=== PATIENT | male | born 1980 | race Caucasian/White ===

== ENCOUNTER 2025-07-08 11:56 | Emergency (ER) | payer BC, SELFPAY ==
--- NOTE | 2025-07-08 | XR_ITS ---
Examination: MRI abdomen with intravenous contrast. MRI abdomen without intravenous contrast. Date and time of exam: July 08, 2025, 1407 hours INDICATIONS: History hypertension and headaches with elevated catecholamines Technique: Multiple axial, sagittal and coronal sections of the abdomen obtained. Transverse images, TR 6020, TE 107. T1 weighted transverse images, TR 582, TE 9.5. T2-weighted sagittal images, TR 4000, TE 105. T2-weighted sagittal images, TR 4000, TE 5. Coronal images, TR 4210, TE 107. Axial and coronal images are obtained post 19 cc intravenous injection, gadolinium. Findings: No visualized liver lesion or intrahepatic biliary duct dilatation No gallstones Normal common hepatic common bile duct No pancreatic mass or peripancreatic edema Bilateral normal adrenal glands No abdominal lymphadenopathy Minimal perinephric stranding Spleen is not enlarged No ascites Postcontrast images demonstrate no abnormal liver or splenic or renal enhancement IMPRESSION: Normal adrenal glands No abdominal lymphadenopathy No abnormal enhancing masses in the abdomen
--- NOTE | 2025-07-08 | XR_ITS ---
Examination: MRI pelvis with intravenous contrast. MRI pelvis without intravenous contrast. Date and time of exam: July 08, 2025, 1407 hours INDICATIONS: Hypertension headaches elevated catecholamines on laboratory examination this week Technique: Multiple axial, sagittal and coronal sections of the pelvis obtained. Transverse images, TR 6020, TE 107. T1 weighted transverse images, TR 582, TE 9.5. T2-weighted sagittal images, TR 4000, TE 105. T2-weighted sagittal images, TR 4000, TE 5. Coronal images, TR 4210, TE 107. Axial and coronal images are obtained post 19 cc intravenous injection, gadolinium. Findings: No common iliac external iliac internal iliac or common femoral lymphadenopathy No free fluid in the pelvis. Normal seminal vesicles Prostate is not enlarged, no prostate nodules Homogeneous marrow signal visualized osseous structures Postcontrast images demonstrate no abnormal osseous or soft tissue enhancement IMPRESSION: Negative study
[2025-07-08 12:09] VITALS: BP 110/80; PULSE 77; RESP 18; TEMP 36.4; O2SAT 97; BMI 32.4
--- NOTE | 2025-07-08 12:44 | EKG_ITS ---
[facility] Test Date: 2025-07-08 Pat Name: JEANNINE MOELLER Department: Room: - Gender: Male Mender Hand: : 1980 Requested By: Tu Rios Order Number: [id number] Reading MD: Tu Rios Measurements Intervals [place] Rate: 75 P: 29 SC: 162 QRS: 40 QRSD: 85 T: 25 QT: 349 QTc: 391 Interpretive Statements SINUS RHYTHM No previous ECG available for comparison /store/S0/[id number]/ecg/[id number].pdf
--- NOTE | 2025-07-08 12:44 | XR_ITS ---
EXAMINATION: PA chest single view TECHNIQUE: Upright PA chest single view Date and time: July 08, 2025, 1329 hours INDICATIONS: Headaches chest pain dizziness beginning 2 days ago. FINDINGS: Normal heart size The lungs are clear. Old healed left clavicle fracture IMPRESSION: No active disease
[2025-07-08] MEDS: ONDANSETRON INJ 2 MG/ML INJ 2 ML 4 MG IVP (13:23)
[2025-07-08] MEDS: KETOROLAC INJ 30 MG/ML VIAL 15 MG IVP (13:24)
[2025-07-08] MEDS: SODIUM CHLORIDE 0.9% 1000 ML 1,000 ML 999 ML IV (13:25)
[2025-07-08 13:43] LABS: Basophils # (Auto) 0.1 Thou/mm3 (0.0-0.2); Basophils % (Auto) 1 % (0-2.5); Eosinophils # (Auto) 0.2 Thou/mm3 (0.0-0.5); Eosinophils % (Auto) 3 % (0-10); Hematocrit 47.2 % (41.0-53.0); Hemoglobin 14.7 g/dL (13.5-16.0); Immature Granulocytes Auto 0.03 Thou/mm3 (0.00-0.00); Lymphocytes # (Auto) 2.3 Thou/mm3 (1.0-4.8); Lymphocytes % (Auto) 35 % (10-50); Mean Corpuscular HGB Conc 31.1 g/dl (31.0-37.0); Mean Corpuscular Hemoglobin 29.3 pg (25.0-35.0); Mean Corpuscular Volume 94 fL (80-100); Monocytes # (Auto) 0.6 Thou/mm3 (0.0-0.8); Monocytes % (Auto) 9 % (0-12); Neutrophils # (Auto) 3.4 Thou/mm3 (1.8-7.7); Neutrophils % (Auto) 52 % (37-80); Nucleated Red Blood Cell # 0.00 Thou/mm3 (0.00-0.00); Nucleated Red Blood Cell % 0 /100 WBC (0); Platelet Count 228 Thou/mm3 (140-440); RDW Standard Deviation 44.1 fL (35.1-43.9); Red Blood Count 5.01 Miln/mm3 (4.50-5.90); White Blood Count 6.6 Thou/mm3 (3.8-10.6)
[2025-07-08 13:58] LABS: INR 1.0 (0.9-1.3); Partial Thromboplastin Time 29.5 Seconds (22.0-36.0); Prothrombin Time 10.3 Seconds (9.0-12.2)
[2025-07-08 14:05] LABS: Alanine Aminotransferase 79 U/L (10-49); Albumin, Serum 5.0 gm/dL (3.5-5.0); Albumin/Globulin Ratio 1.9 (1.2-2.2); Alkaline Phosphatase 77 U/L (46-116); Anion Gap 10 (7-16); Aspartate Amino Transferase 39 U/L (0-34); BUN/Creatinine Ratio 10 Ratio (12-20); Bilirubin,Total 0.5 mg/dL (0.3-1.2); Blood Urea Nitrogen 9 mg/dL (9-23); Calcium 9.5 mg/dL (8.3-10.6); Calcium (Corrected) 9.5 mg/dL (8.5-10.1); Carbon Dioxide 28.3 mMol/L (20.0-31.0); Chloride 103 mMol/L (98-107); Creatinine (Component) 0.9 mg/dL (0.6-1.3); Estimated Creatinine Clearance 121.7 mL/min (>60); Globulin 2.6 gm/dL (2.3-3.5); Glucose 89 mg/dL (74-106); Osmolality,Calculated 278 (275-295); Potassium 4.4 mMol/L (3.4-5.1); Sodium 141 mMol/L (136-145); Total Protein 7.6 gm/dL (5.7-8.2); Troponin I < 0.002 ng/mL (0.0-0.045); eGFR > 60 See Note
--- NOTE | 2025-07-08 17:34 | EDNOTE_ITS ---
ED Headache RME/HPI General Chief Complaint: Headache Stated Complaint: HEADACHE X 1 YEAR Time Seen by Provider: 07/08/25 12:14 Arrival date/time: 07/08/25 11:56 Limitations: no limitations RME / HPI RME / HPI Narrative: 45 year old male with history of hypertension (on Olemasartan) and previous sinus surgery presents to the ED for complaint of frontal headache, nausea, dizziness beginning over the last few days and worsening this morning. Patient reports he has had similar symptoms intermittently over the last few years and had been evaluated by specialist at [facility]. states the patient once had a lumbar puncture with borderline high opening pressure of 20 and neurologist at that time were concerned he may have intracranial hypertension though no further work-up or testing performed. No other associated symptoms or complaints reported. Patient additionally reports he consulted with his PCP regarding his symptoms who ordered cortisol levels and a 24 hour catecholamines test and told the catecholamine level in urine was elevated. Patient states he has not had any imaging performed by PCP. Related Data Allergies Allergy/AdvReac Type Severity Reaction Status Date / Time No Known Allergies Allergy Verified 07/08/25 12:00 Review of Systems Review of Systems Systems Reviewed: All systems reviewed, normal except as documented Past Medical History Past Medical History RESPIRATORY: Negative Respiratory Disorders Social History SMOKING STATUS: Never smoker ED Exam General Limitations: Present no limitations General appearance: Present alert and in no apparent distress Head Head exam: Present atraumatic, normocephalic and normal inspection Eye Eye exam: Present normal appearance, PERRL and EOMI ENT ENT exam: Present normal exam, normal oropharynx and mucous membranes moist Neck Neck exam: Present normal inspection, full ROM and trachea midline Chest Chest inspection: Present normal inspection and symmetric chest wall rise Respiratory Respiratory exam: Present normal lung sounds bilaterally Cardiovascular Cardiovascular exam: Present regular rate, normal rhythm and normal heart sounds Abdominal Exam Abdominal exam: Present soft and normal bowel sounds Extremities Exam Extremities exam: Present normal inspection and full ROM Back Exam Back exam: Present normal inspection and full ROM Neurological Exam Neurological exam: Present alert, oriented X3 and CN II-XII intact Psychiatric Psychiatric exam: Present normal affect and normal mood Skin Skin exam: Present warm, dry, intact and normal color Course Quality Measures none Orders Category Date Time Status Party Plan Sales Host/Hostess NOW Care 07/08/25 12:44 Active Continuous Pulse Oximetry NOW Care 07/08/25 12:44 Active EKG (ED ONLY) *Do not use* NOW Care 07/08/25 12:44 Completed Insert IV NOW Care 07/08/25 12:44 Active MRI Screening NOW Care 07/08/25 12:48 Active EKG (ED Only) Stat Exams 07/08/25 12:44 Draft MR abdomen wo/w con Stat Exams 07/08/25 Completed MR pelvis wo/w con Stat Exams 07/08/25 Completed XR chest 1V portable Stat Exams 07/08/25 12:44 Completed CBC Stat Lab 07/08/25 13:25 Completed Comprehensive Metabolic Panel Stat Lab 07/08/25 13:25 Completed Partial Thromboplastin Time Stat Lab 07/08/25 13:25 Completed Prothrombin Time with INR Stat Lab 07/08/25 13:25 Completed Troponin I Stat Lab 07/08/25 13:25 Completed Urinalysis Stat Lab 07/08/25 12:44 Ordered Ketorolac Inj [Toradol Inj] Med 07/08/25 12:46 Discontinued 15 mg IVP X1 ONE Ondansetron Inj [Zofran Inj] Med 07/08/25 12:46 Discontinued 4 mg IVP X1 ONE Sodium Chloride 0.9% 1000 ml [Ns] 1,000 ml Med 07/08/25 12:44 Discontinued IV 999 mls/hr Vital Signs Vital signs: Vital Signs Temperature 97.5 F 07/08/25 12:09 Pulse Rate 77 07/08/25 12:09 Respiratory Rate 18 07/08/25 12:09 Blood Pressure 110/80 07/08/25 12:09 Pulse Oximetry (%) 97 07/08/25 12:09 Oxygen Delivery Method Room Air 07/08/25 12:09 Pulse ox is 97% on room air which is adequate. Headache MDM Narrative MDM Narrative:: IBambi, abdulaziz scribing for and in the presence of Dr. Walters. Given the patients high 24 hour catecholamines test, we need to rule out adrenal. MRI of the abdomen was ordered along with labs. Labs and the MRI w/wo contrast were normal. Assessment: Headache, dizziness, elevated catecholamines The patient was advised to continue taking the same medications and the reports were given to him for his primary. Findings discussed with patient and and patient was discharged home. Patient data External records reviewed:: [facility] previous records Clinical information provided by:: patient Social determinants that could affect healthcare access:: none Patient has the following chronic illnesses:: hypertension (on Olemasartan) and previous sinus surgery How is presenting disease/condition affected by chronic disease/condition?: exacerbated by Evaluation data The following diagnostics were reviewed and interpreted by me:: lab results, radiology exam(s) and EKG tracing(s) (EKG 13:24. NSR, rate 75, no STEMI. ) Lab and/or radiology exams considered but not ordered:: None Interpretation Summary: Ordering Physician: Tu Walters MD Date of Service: 07/08/25 Procedure(s): MR abdomen wo/w con Accession Number(s): [id number] cc: Tu Walters MD; Aleksander Buck MD; NO PRIMARY/FAMILY,PHYSICIAN~ Examination: MRI abdomen with intravenous contrast. MRI abdomen without intravenous contrast. Date and time of exam: July 08, 2025, 1407 hours INDICATIONS: History hypertension and headaches with elevated catecholamines Technique: Multiple axial, sagittal and coronal sections of the abdomen obtained. Transverse images, TR 6020, TE 107. T1 weighted transverse images, TR 582, TE 9.5. T2-weighted sagittal images, TR 4000, TE 105. T2-weighted sagittal images, TR 4000, TE 5. Coronal images, TR 4210, TE 107. Axial and coronal images are obtained post 19 cc intravenous injection, gadolinium. Findings: No visualized liver lesion or intrahepatic biliary duct dilatation No gallstones Normal common hepatic common bile duct No pancreatic mass or peripancreatic edema Bilateral normal adrenal glands No abdominal lymphadenopathy Minimal perinephric stranding Spleen is not enlarged No ascites Postcontrast images demonstrate no abnormal liver or splenic or renal enhancement IMPRESSION: Normal adrenal glands No abdominal lymphadenopathy No abnormal enhancing masses in the abdomen Dictated By: Aleksander Buck MD Signed By: <Electronically signed by Aleksander Buck MD in OV> 07/08/25 1536 Ordering Physician: Tu Walters MD Date of Service: 07/08/25 Procedure(s): MR pelvis wo/w con Accession Number(s): [id number] cc: Tu Walters MD; Aleksander Buck MD; NO PRIMARY/FAMILY,PHYSICIAN~ Examination: MRI pelvis with intravenous contrast. MRI pelvis without intravenous contrast. Date and time of exam: July 08, 2025, 1407 hours INDICATIONS: Hypertension headaches elevated catecholamines on laboratory examination this week Technique: Multiple axial, sagittal and coronal sections of the pelvis obtained. Transverse images, TR 6020, TE 107. T1 weighted transverse images, TR 582, TE 9.5. T2-weighted sagittal images, TR 4000, TE 105. T2-weighted sagittal images, TR 4000, TE 5. Coronal images, TR 4210, TE 107. Axial and coronal images are obtained post 19 cc intravenous injection, gadolinium. Findings: No common iliac external iliac internal iliac or common femoral lymphadenopathy No free fluid in the pelvis. Normal seminal vesicles Prostate is not enlarged, no prostate nodules Homogeneous marrow signal visualized osseous structures Postcontrast images demonstrate no abnormal osseous or soft tissue enhancement IMPRESSION: Negative study Dictated By: Aleksander Buck MD Signed By: <Electronically signed by Aleksander Buck MD in OV> 07/08/25 1538 Ordering Physician: Tu Walters MD Date of Service: 07/08/25 Procedure(s): XR chest 1V portable Accession Number(s): [id number] cc: Tu Walters MD; Aleksander Buck MD; NO PRIMARY/FAMILY,PHYSICIAN~ EXAMINATION: PA chest single view TECHNIQUE: Upright PA chest single view Date and time: July 08, 2025, 1329 hours INDICATIONS: Headaches chest pain dizziness beginning 2 days ago. FINDINGS: Normal heart size The lungs are clear. Old healed left clavicle fracture IMPRESSION: No active disease Dictated By: Aleksander Buck MD Signed By: <Electronically signed by Aleksander Buck MD in OV> 07/08/25 1402 Medications / Prescriptions Medications or Prescriptions considered but not ordered:: None Medication administrations:: Medication Administration History Discontinued Medications Sodium Chloride (Ns) 1,000 mls @ 999 mls/hr IV .Q1H1M ONE Stop: 07/08/25 13:44 Last Infusion: 07/08/25 16:09 Dose: Infused Documented By: Admin: 07/08/25 13:25 Dose: 999 mls/hr Documented By: TD Ketorolac Tromethamine (Ketorolac Inj 30 Mg/Ml Vial) 15 mg IVP X1 ONE Stop: 07/08/25 12:47 Last Admin: 07/08/25 13:24 Dose: 15 mg Documented By: TD Ondansetron HCl (Ondansetron Inj 2 Mg/Ml Inj 2 Ml) 4 mg IVP X1 ONE; Protocol Stop: 07/08/25 12:47 Last Admin: 07/08/25 13:23 Dose: 4 mg Documented By: TD See above Consultations Consultation(s) initiated? (list below): No Diagnosis Differential diagnosis headache: migraine, tension headache, subarachnoid hemorrhage, headache and sinusitis Most likely diagnosis given after review of the tests above:: Headache TMJ Admission Indicated Admission indicated?: not indicated Admission Request Was there a request for admission?: No Disposition Plan Disposition Plan: Discharge Discharge Attestation Discharge Attestation: The patient and all family members were given an opportunity to ask questions and understood the discharge instructions. Discharge instructions specifically effects, indications for sooner follow up or return to the emergency department, and the expected course of current diagnosis. Patient condition: Stable Discharge Plan Plan Patient Disposition: HOME (Self Care) Patient condition on transfer: Stable Prescriptions/Referrals Referrals: No Primary/Family,Physician [Primary Care Provider] - In 1 week Problem List Clinical Impression: Headache, TMJ (temporomandibular joint syndrome) Patient/Caregiver Discharge Instructions Discharge Activity: activity as tolerated Additional Instructions: Follow-up with your primary care doctor in 1 day. Consider referral to ENT physician and to neurology. Continue your usual medications. Print Language: Samoan Stand Alone Forms: Jada Award Info., Patient Portal Info Letter
== END 2025-07-08 18:49 | disposition home or self-care (01) ==
PROVIDERS: Emergency Provider Family Medicine
DX: M26.609 Unspecified temporomandibular joint disorder, unspecified side (principal); I10 Essential (primary) hypertension
CPT/HCPCS: 36415; 71045; 72197; 74183; 80053; 81001; 84484; 85025; 85610; 85730; 93005; 96361; 96374; 96375; 99283; A9577; J1885; J2405; J7030